=== PATIENT | female | born 2000 | race Two or more races ===

== ENCOUNTER 2020-10-23 13:56 | Emergency (ER) | payer OTHER ==
[~2020-10-23] VITALS: Ht 154.9 cm; Wt 87.5 kg
== END 2020-10-23 18:59 | disposition home or self-care (01) ==
LOC: ER 13:56
DX: S93.491A Sprain of other ligament of right ankle, initial encounter (principal); S00.03XA Contusion of scalp, initial encounter; R55 Syncope and collapse; W01.198A Fall on same level from slipping, tripping and stumbling with subsequent striking against other object, initial encounter; Y93.89 Activity, other specified; Y92.832 Beach as the place of occurrence of the external cause; Y99.8 Other external cause status; Z20.822 Contact with and (suspected) exposure to COVID-19